=== PATIENT | male | born 1975 | race Caucasian/White ===

== ENCOUNTER 2018-06-13 12:30 | Emergency (ER) | payer OTHER ==
[2018-06-13] MEDS ORDERED: ASPIRIN 81 MG CHEWABLE CTB PO ONE (12:40)
[2018-06-13] MEDS ORDERED: ASPIRIN 81 MG CHEWABLE CTB ONE (12:41)
[2018-06-13] MEDS ORDERED: KETOROLAC TROMETHAMINE 30 MG/ML SOL IV ONE (12:47)
[2018-06-13] MEDS ORDERED: KETOROLAC TROMETHAMINE 30 MG/ML SOL ONE (12:49)
[2018-06-13 12:57] LABS: BASOPHILS % (AUTO) 1 % (0-3); EOSINOPHILS % (AUTO) 0 % (0-9); HEMATOCRIT 45 % (39-53); HEMOGLOBIN 14.5 gm/dl (13.5-17.7); LYMPHOCYTES % (AUTO) 21.3 % (10-50); MEAN CORPUSCULAR HGB CONC 32.7 gm/dl (32.0-36.0); MEAN CORPUSCULAR VOLUME 86 fL (80-100); MONOCYTES % (AUTO) 9.9 % (0-12); NEUTROPHILS % (AUTO) 67.2 % (37-80)
[2018-06-13] MEDS ORDERED: NITROGLYCERIN 0.4 MG TAB SL PRN (13:10)
[2018-06-13] MEDS ORDERED: NITROGLYCERIN 0.4 MG TAB SL ONE (13:10)
[2018-06-13 13:11] LABS: BLOOD UREA NITROGEN 15 mg/dl (7-18); CALCIUM 8.4 mg/dl (8.5-10.1); CARBON DIOXIDE 29.1 mEq/L (21-32); CREATININE 0.99 mg/dl (0.80-1.30); GLUCOSE 95 mg/dl (74-106); TROP I < 0.017 ng/ml (0.000-0.056)
[2018-06-13 13:12] LABS: CHLORIDE 102 mMol/L (98-107); POTASSIUM 3.6 mMol/L (3.5-5.1); SODIUM 137 mMol/L (136-145)
[2018-06-13] MEDS ORDERED: LIDOCAINE HCL 2% (VISCOUS) 20 ML SOL MT ONE (13:21)
[2018-06-13] MEDS ORDERED: ALUMINUM/MAGNESIUM 30 ML SUS PO ONE (13:21)
[2018-06-13] MEDS ORDERED: ALUMINUM/MAGNESIUM 30 ML SUS ONE (13:24)
[2018-06-13] MEDS ORDERED: LIDOCAINE HCL 2% (VISCOUS) 20 ML SOL ONE (13:24)
[2018-06-13 13:35] VITALS: TEMP 99.8
[2018-06-13 14:32] VITALS: BP 115/71; PULSE 94; RESP 13; O2SAT 95
== END 2018-06-13 13:40 | disposition home or self-care (01) | DRG 313 ==
LOC: ED 12:30
DX: R07.89 Other chest pain (principal)
CPT/HCPCS: 71045; 80048; 84484; 85025; 85378; 93005; 96374; 99284; J1885; A9270-GY